=== PATIENT | male | born 1985 | race Two or more races ===

== ENCOUNTER 2024-01-12 23:20 | Emergency (ER) | payer SELFPAY ==
[~2024-01-12] VITALS: Ht 177.8 cm; Wt 99.2 kg
[2024-01-12 23:49] LABS: Urine Bacteria None Seen /hpf (None Seen)
[2024-01-13 00:14] LABS: Urine Blood Negative /uL (Negative); Urine Clarity Turbid (Clear); Urine Color Yellow (Yellow); Urine Hyaline Cast MANY /lpf (0 - 2); Urine Mucus FEW (None Seen); Urine Protein, UAD 2+ (Negative); Urine Specific Gravity 1.036 (1.001-1.035); Urine Urobilinogen 2 mg/dL (Negative); Urine WBC 19 /hpf (0 - 3); Urine pH 5.5 (5.0-9.0)
[2024-01-13] MEDS: ONDANSETRON HCL 4 MG/2 ML VIAL IV ONE (00:51)
[2024-01-13] MEDS: IOHEXOL 300 MG/ML 100ML BOTTLE IJ ONE (00:53)
[2024-01-13] MEDS: SODIUM CHLORIDE 0.9% 1,000 ML IV ONE ×2 (00:53→02:21)
[2024-01-13] MEDS: MORPHINE SULFATE 4 MG/ML SYR/VIAL IV ONE (00:56)
[2024-01-13 00:57] LABS: Basophils # (auto) 0.1 10 ^3/uL (0-0.2); Eosinophils # (auto) 0.2 10 ^3/uL (0-0.8); Neutrophils # (auto) 13.8 10 ^3/uL (1.6-8.6); Nucleated Red Blood Cells % 0.1 %
[2024-01-13 00:58] LABS: Basophils % (auto) 0.5 % (0.0-2.0); Eosinophils % (auto) 1.2 % (0.0-7.0); Hematocrit 52.7 % (41.0-53.0); Hemoglobin 18.3 g/dL (13.5-17.5); Lymphocytes # (auto) 2.4 10 ^3/uL (0.4-5.4); Lymphocytes % (auto) 13.5 % (10.0-50.0); Mean Corpuscular Hemoglobin 30.8 pg (28.0-32.0); Mean Corpuscular Hgb Conc. 34.6 g/dL (32.0-36.0); Mean Corpuscular Volume 88.9 fL (80.0-100.0); Monocytes # (auto) 1.3 10 ^3/uL (0-1.3); Monocytes % (auto) 7.2 % (0.0-12.0); Neutrophils % (auto) 77.6 % (37.0-80.0); Platelet Count (auto) 321 10^3/uL (140-450); Red Blood Cells 5.93 10^6/uL (4.5-5.90); White Blood Cell 17.7 10^3/uL (4.4-10.8)
[2024-01-13 01:12] LABS: Alanine Aminotransferase 18 U/L (7-40); Albumin 5.4 g/dL (3.2-4.8); Alkaline Phosphatase 101 U/L (46-116); Anion Gap 9 (5-15); Aspartate Aminotransferase < 8 U/L (13-40); BUN/Creatinine Ratio 11.6 (10.0-20.0); Bilirubin, Total 1.6 mg/dL (0.2-1.0); Blood Urea Nitrogen 16 mg/dL (9-23); Calcium 10.3 mg/dL (8.7-10.4); Carbon Dioxide 25 mmol/L (20-31); Chloride 103 mmol/L (98-107); Glucose 163 mg/dL (74-106); Lipase 30 U/L (12-53); Potassium 3.5 mmol/L (3.5-5.1); Sodium 137 mmol/L (136-145); Total Protein 8.7 g/dL (5.7-8.2)
[2024-01-13 01:34] VITALS: BP 133/84; PULSE 99; RESP 18; O2SAT 98
[2024-01-13] MEDS: FAMOTIDINE (10MG/ML) 2ML VL IV ONE (02:21)
[2024-01-13] MEDS: KETOROLAC TROMETH 30 MG/ML 1ML VIAL IV ONE (02:22)
== END 2024-01-13 02:53 | disposition home or self-care (01) ==
LOC: ER 23:20
DX: K52.9 Noninfective gastroenteritis and colitis, unspecified (principal); F17.210 Nicotine dependence, cigarettes, uncomplicated; F12.90 Cannabis use, unspecified, uncomplicated
CPT/HCPCS: 36415; 74177; 80053; 81001; 83690; 85025; 96361; 96374; 96375; 99285; J2405; J3490; J7030; Q9967; J1885